=== PATIENT | female | born 1990 | race Caucasian/White ===

== ENCOUNTER 2025-02-14 20:02 | Emergency (ER) | payer SELFPAY ==
[2025-02-14] MEDS ORDERED: Ibuprofen 200 MG TAB ONE (20:25)
== END 2025-02-14 21:14 | disposition home or self-care (01) ==
LOC: CSHERS 20:02
DX: S93.401A Sprain of unspecified ligament of right ankle, initial encounter (principal); X50.0XXA Overexertion from strenuous movement or load, initial encounter
CPT/HCPCS: 99283